=== PATIENT | male | born 1940 | race Caucasian/White ===

== ENCOUNTER 2017-10-02 19:51 | Emergency (ER) | payer MEDICARE, OTHER ==
[~2017-10-02] VITALS: Ht 177.8 cm; Wt 115.0 kg
[2017-10-02 20:29] VITALS: BP 158/74; PULSE 78; RESP 18; TEMP 98.5; O2SAT 97
[2017-10-02 21:28] LABS: AUTOMATED NEUTROPHIL # 4.1 TH/MM3 (1.8-7.7); BASOPHIL # 0.1 TH/MM3 (0-0.2); BASOPHIL % 0.7 % (0.0-2.0); EOSINOPHIL # 0.2 TH/MM3 (0-0.4); HEMATOCRIT 43.6 % (39.0-51.0); HEMOGLOBIN 15.3 GM/DL (13.0-17.0); LYMPH % 30.3 % (9.0-44.0); LYMPHOCYTE # 2.2 TH/MM3 (1.0-4.8); MEAN CELL VOLUME 90.4 FL (80.0-100.0); MEAN CORPUSCULAR HEMOGLOBIN 31.7 PG (27.0-34.0); MEAN PLATELET VOLUME 7.9 FL (7.0-11.0); MONO % 8.1 % (0.0-8.0); MONOCYTE # 0.6 TH/MM3 (0-0.9); NEUT % 57.9 % (16.0-70.0); PLATELET COUNT 261 TH/MM3 (150-450); RED BLOOD COUNT 4.82 MIL/MM3 (4.50-5.90); RED CELL DISTRIBUTION WIDTH 12.8 % (11.6-17.2); WHITE BLOOD COUNT 7.1 TH/MM3 (4.0-11.0)
[2017-10-02 21:53] LABS: BICARBONATE 26.5 MEQ/L (21.0-32.0); BLOOD UREA NITROGEN 18 MG/DL (7-18); CALCIUM 8.8 MG/DL (8.5-10.1); CHLORIDE 107 MEQ/L (98-107); CREATININE 0.88 MG/DL (0.60-1.30); GLOMERULAR FILTRATION RATE 84 ML/MIN (>89); GLUCOSE,RANDOM 112 MG/DL (74-106); SODIUM (NA) 141 MEQ/L (136-145)
--- NOTE | 2017-10-02 22:19 | RADRPT ---
EXAM DATE/TIME: 10/02/2017 21:36 [place] COMPARISON: No previous studies available for comparison. INDICATIONS : Chest pain. MEDICAL HISTORY : None. SURGICAL HISTORY : None. ENCOUNTER: Initial ACUITY: 1 day PAIN SCORE: 8/10 LOCATION: Bilateral chest FINDINGS: PA and lateral views of the chest demonstrate the lungs to be symmetrically aerated without evidence of mass, infiltrate or effusion. The cardiomediastinal contours are unremarkable. Spurs are seen in the thoracic spine. CONCLUSION: No acute disease. Juan Daniel Gomez MD on October 02, 2017 at 22:16 Board Certified Radiologist. This report was verified electronically.
[2017-10-02 22:21] LABS: TROPONIN I LESS THAN 0.02 NG/ML (0.02-0.05)
[2017-10-02] MEDS ORDERED: FINA5TAB2 (23:57)
[2017-10-02] MEDS ORDERED: CARV6.252 PO (23:57)
[2017-10-02] MEDS ORDERED: TAMS0.4C4 PO (23:57)
[2017-10-02] MEDS ORDERED: VYTO10TA9 PO (23:57)
[2017-10-02] MEDS ORDERED: MICA80TA2 PO (23:57)
[2017-10-02] MEDS ORDERED: ASPI-516 CHEW (23:57)
[2017-10-02] MEDS ORDERED: ASPI-183 PO (23:57)
[2017-10-02] MEDS ORDERED: CLOB0.055 TOPICAL (23:57)
[2017-10-03 00:16] VITALS: BP 171/81; PULSE 68; RESP 18; O2SAT 95
[2017-10-03 00:41] VITALS: RESP 18; O2SAT 97
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
--- NOTE | 2017-10-04 11:25 | EKG ---
Date Performed: 10/02/2017 Time Performed: 20:46:06 PTAGE: 77 years EKG: Sinus rhythm NORMAL ECG PREVIOUS TRACING : 08/30/2003 08.14 Since the previous tracing, no significant change noted DOCTOR: Mitchell Toure Interpretating Date/Time 10/04/2017 11:24:10
--- NOTE | 2017-10-04 11:26 | EKG ---
Date Performed: 10/03/2017 Time Performed: 00:37:23 PTAGE: 77 years EKG: Sinus rhythm MODERATE VOLTAGE CRITERIA FOR LVH, CONSIDER NORMAL VARIANT BORDERLINE ECG PREVIOUS TRACING : 10/02/2017 20.46 Since the previous tracing, no significant change noted DOCTOR: Mitchell Toure Interpretating Date/Time 10/04/2017 11:24:17
== END 2017-10-03 02:50 | disposition home or self-care (01) ==
LOC: NEPE 19:51
DX: R60.9 Edema, unspecified (principal); R07.9 Chest pain, unspecified; R06.02 Shortness of breath; E78.00 Pure hypercholesterolemia, unspecified; I10 Essential (primary) hypertension
CPT/HCPCS: 71046; 80048; 82550; 82552; 83880; 84484; 85025; 93005; 99285

== ENCOUNTER 2017-10-25 05:37 | Day surgery (SDC) | payer MEDICARE, OTHER ==
[~2017-10-25] VITALS: Ht 177.8 cm; Wt 115.9 kg
[2017-10-25] VITALS (11 sets, daily range): BP systolic 137–186; BP diastolic 64–83; PULSE 48–78; RESP 17–20; TEMP 97.8–98; O2SAT 95–97
[~2017-10-25 05:37] MED LIST: ASPI-183 PO; ASPI-516 CHEW; CARV6.252 PO; CLOB0.055 TOPICAL; FINA5TAB2; MICA80TA2 PO; TAMS0.4C4 PO; VYTO10TA9 PO
[2017-10-25] MEDS ORDERED: IOHEXOL 350 MG/ML 100 ML BTL (for Cath Lab) OTHER ONE (05:38)
[2017-10-25] MEDS ORDERED: ASPIRIN 325 MG TAB PO SCH (06:30)
[2017-10-25] MEDS ORDERED: HEPARIN-NS/PF FLUSH BAG 2,000 ML IV FLUSH ONE (06:57)
[2017-10-25 06:58] LABS: AUTOMATED NEUTROPHIL # 3.7 TH/MM3 (1.8-7.7); BASOPHIL # 0.1 TH/MM3 (0-0.2); BASOPHIL % 0.9 % (0.0-2.0); EOSINOPHIL # 0.2 TH/MM3 (0-0.4); EOSINOPHIL % 2.7 % (0.0-4.0); HEMOGLOBIN 13.5 GM/DL (13.0-17.0); LYMPH % 27.3 % (9.0-44.0); LYMPHOCYTE # 1.7 TH/MM3 (1.0-4.8); MEAN CELL VOLUME 90.3 FL (80.0-100.0); MEAN CORPUSCULAR HEMOGLOBIN 31.1 PG (27.0-34.0); MEAN CORPUSCULAR HGB CONC 34.5 % (32.0-36.0); MEAN PLATELET VOLUME 7.7 FL (7.0-11.0); MONO % 8.5 % (0.0-8.0); MONOCYTE # 0.5 TH/MM3 (0-0.9); NEUT % 60.6 % (16.0-70.0); PLATELET COUNT 247 TH/MM3 (150-450); RED BLOOD COUNT 4.33 MIL/MM3 (4.50-5.90); RED CELL DISTRIBUTION WIDTH 13.2 % (11.6-17.2); WHITE BLOOD COUNT 6.1 TH/MM3 (4.0-11.0)
[2017-10-25] MEDS ORDERED: NS 1000P @30 MLS/HR (KVO) IV SCH (07:00)
[2017-10-25 07:09] LABS: INTERNATIONAL NORMALIZED RATIO 1.1 RATIO; PROTHROMBIN TIME - PATIENT 11.4 SEC (9.8-11.6)
[2017-10-25 07:12] LABS: BICARBONATE 27.3 MEQ/L (21.0-32.0); CALCIUM 8.6 MG/DL (8.5-10.1); CREATININE 0.93 MG/DL (0.60-1.30)
[2017-10-25] MEDS ORDERED: MIDAZOLAM HCL 2 MG/2 ML VIAL ONE (07:25)
[2017-10-25] MEDS ORDERED: VERAPAMIL HCL 5 MG/2 ML VIAL ONE (07:26)
[2017-10-25] MEDS ORDERED: HEPARIN SODIUM - IV 10,000 UNITS/10 ML VIAL ONE (07:26)
[2017-10-25] MEDS ORDERED: LIDOCAINE HCL 1% PF 30 ML VIAL ONE (07:52)
[2017-10-25] MEDS ORDERED: BIVALIRUDIN 250 MG VIAL ONE ×2 (08:37→08:59)
[2017-10-25] MEDS ORDERED: TICAGRELOR 90 MG TAB PO ONE (09:20)
[2017-10-25] MEDS ORDERED: BIVALIRUDIN INJ 250 MG in SODIUM CHLORIDE 0.9% INJ 50 ML IV SCH (09:42)
[2017-10-25] MEDS ORDERED: SODIUM CHLOR 0.9% 1000 ML INJ 1,000 ML IV SCH (09:42)
[2017-10-25] MEDS ORDERED: ONDANSETRON HCL 4 MG/2 ML VIAL IV PUSH PRN (09:45)
[2017-10-25] MEDS ORDERED: ACETAMINOPHEN 325 MG TAB PO PRN (09:45)
[2017-10-25] MEDS ORDERED: SODIUM CHLORIDE 0.9% FLUSH 10 ML FLUSH IV FLUSH PRN (09:45)
[2017-10-25] MEDS ORDERED: oxyCODONE/ACETAMINOPHEN 5 MG/325 MG TAB PO PRN (09:45)
--- NOTE | 2017-10-25 09:46 | CATHPROC ---
Cerevo HIS Report Study Information Study Number Admission Scheduled Start Study Start [id number] Oct 25 2017 5:37AM 10/25/2017 Oct 25 2017 7:16AM [facility] Cardiac Catheterization Admit Source Facility Department Other [facility] - Director Of Compensation Physician and Clinical Staff Initial MD Kan, Ron Right Of Way Appraiserrich Mahmood RN, Demarco Recorder Nena Reyna ,RT(R) Scrub Kareem Rojo RCIS(BS) Procedures Performed Procedure Location (Site) Vessel Name Angiogram LV LV Ventricle Coronary Angiograms LCA Left Coronary Coronary Angiograms RCA Right Coronary Drug Eluting Inflatio RCA Mid Right Coronary L Heart Cath PTCA RCA Mid Right Coronary Wire insertion Fem Art (right) Femoral Art Wire insertion Radial (right) Radial Art. Equipment Time Lineman Apprentice Description Size Mfg Part Number Used/Scraped [id number] 08:59 [employer] WIRE, ASAHI GRANDSLAM 180CM 180CM Used *[id number] WIRE, BALANCE MIDDLEWEIGHT [id number] 09:02 [employer] 190CM Used 190CM *[id number] TRANSDUCER, TRUWAVE [id number] 07:54 JAMA MARVIN * Used W/STOCKCOCK *[id number] 08:58 [employer] BALLOON, 3.5 20MM EMERGE MR 3.5 20MM Used *[id number] BALLOON, 4.5 15[place] [id number] 09:17 [employer] 4.5 15MM Used QUANTUM APEX MR *[id number] 534-676T *[id number] [phone] *[id number] 534-622T *3755926 [phone] *8891496 [phone] *[id number] PIGTAIL ANG. 145 INFINITI 534-652S CATHETER *[id number] *[id number] 447267 09:25 DAIG/[employer]. TOD[employer] ANGIOSEAL, FR6 VIP FR 6 Used *[id number] 056246 07:54 MALLINCKRODT SYRINGE, ANGIOMAT 150ML 150ML *[id number]/022657 Used 2SUB [id number] 07:54 MEDLINE IND[employer] PACK, CCL CUSTOM * Used *[id number] 07:54 MED[employer] IND[employer] SUPPORT, ARTERIAL ADULT 07347 *4645995 Used [id number] 07:54 MEDLINE PACER PEN, SKIN DUAL W/ RULER * Used *[id number] [id number] 08:56 MED[employer] STENT, 4.0 26MM SHY 4.0 26MM Used * [id number] 09:07 [employer] MEDICAL 30 GISELL INDEFLATOR Used *[id number] BAND, RADIAL COMPRESSION TR [id number] 09:28 [employer] MEDICAL 29CM Used LARGE 29 *[id number] [id number] 08:23 RPO SHEATH, FR6.5 PRELUDE 11CM FR 6.5 038ACT Used *[id number] [id number] 07:54 RPO WIRE, EXCHANGE 260CM 3MMJ 260CM Used *[id number] [id number] 07:54 NAMIC MANIFOLD, 4 PORT * Used *0211061 [id number] 08:25 NAMIC TUBING, HIGH PRESSURE 48" 48" Used *3477367 [id number] 08:25 NAMIC TUBING, HIGH PRESSURE 48" 48" Used *9187653 07:54 [employer] OMNIPAQUE, 350 MG, 100ML 100ML [id number] Used [id number] 07:54 [employer] BLANKET,WARM AIR CCL * Used *2545085 07:54 [employer] JELCO NEEDLE 4056 *2927041 Used CATHETER, FR5 OPTITORQUE [id number] 07:57 [employer] FR 5 Used RADIAL TIG 4.0 *[id number] SHEATH, FR6 TRANSRADIAL RM*[id number] 07:54 [employer] FR 6 Used SLENDER 10CM *[id number] WIRE, ANGLED GLIDE .035 [id number] 08:13 [employer] MEDICAL/CHASE 260CM Used 260CM *[id number] Equipment Model, Serial, Lot Number and Expiration Data Description Model Number Serial Number Lot Number Expiration Date ANGIOSEAL, FR6 [facility] [id number] 05-07-2018 BALLOON, 3.5 20MM EMERGE MR [id number] 05-07-2018 STENT, 4.0 26MM SHY [id number] 01-21-2019 History: Current Medications Medication Dosage/Unit Route Frequency Last Date/Time Taken ASA CARVEDILOL History: Allergies Allergy Reaction promethazine Anaphylaxis History: Risk Factors Family History of Hypertension Dyslipidemia Previous SD Previous Heart Failure Premature CAD Yes Yes No No No Prior Valve Prior PCI Prior CABG Surgery No No No Cerebrovascular Peripheral Artery Chronic Lung On Dialysis Diabetes Disease Disease Disease No No No No No History: Stress Tests Stress or Imaging Studies Performed No Labs Hgb (g/dl) Hct (%) WBC (l/cumm) Platelets (thousands) 11.60-17.00 35.00-51.00 4.00-11.00 150.00-450.00 13.5 39 6.1 247 Glucose (mg/dl) BUN (mg/dl) Creatinine (mg/dl) BUN:Creatinine (1:x) 74.00-106.00 7.00-18.00 0.50-1.30 10.00-20.00 98 15 0.9 16.7 Na (meq/l) K (meq/l) 136.00-145.00 3.50-5.10 143 3.8 INR (PTT:PT) 0.90-1.10 1.1 CPK-MB (ng/ML) 0.50-3.60 Not Drawn Medication Medication Total Dose (Bolus/Oral) Medication Total Dosage/Unit 1% XYLOCAINE 25 mL ANGIOMAX BOLUS 17.2 mL BRILLINTA 180 mg FENTANYL 50 mcg NTG (IC) 200 mcg RADIAL COCKTAIL 5 mL (Bolus) VERSED 2 mg Medications (Bolus/Oral) Medication Time Given Dosage/Unit Administered By Reason VERSED 10/25/2017 8:05:12 AM 1 mg Demarco Mahmood RN 1 mg VERSED given in lab by Demarco Mahmood RN in Left Antecubital via Peripheral IV. Ordered by Ron Kan. 1% XYLOCAINE 10/25/2017 8:05:29 AM 5 mL Ron Kan 5 mL 1% XYLOCAINE given in lab by Ron Kan in Right Radial via Subcutaneous. Ordered by Ron Kan. Ntg 200mcg Verapamil 2.5mg Heparin RADIAL COCKTAIL 10/25/2017 8:08:37 AM 5 mL (Bolus) Ron Kan 2500U 5 mL (Bolus) RADIAL COCKTAIL given in lab by oRn Kan in Right Radial via Radial. Using [Solutio n Name]. Ordered by Ron Kan. Reason: Ntg 200mcg Verapamil 2.5mg Heparin 2500U. VERSED 10/25/2017 8:09:14 AM 1 mg Demarco Mahmood RN 1 mg VERSED given in lab by Demarco Mahmood RN in Left Antecubital via Peripheral IV. Ordered by Ron Kan. FENTANYL 10/25/2017 8:10:29 AM 50 mcg Demarco Mahmood RN 50 mcg FENTANYL given in lab by Demarco Mahmood RN in Left Antecubital via Peripheral IV. Ordered by Ron Houser. 1% XYLOCAINE 10/25/2017 8:21:07 AM 20 mL Ron Kan 20 mL 1% XYLOCAINE given in lab by Ron Kan in Right Groin via Subcutaneous. ANGIOMAX BOLUS 10/25/2017 8:39:20 AM 17.2 mL Demarco Mahmood RN 17.2 mL ANGIOMAX BOLUS given in lab by Demarco Mahmood RN in Left Antecubital via Peripheral IV. Ordered by Ron Kan. NTG (IC) 10/25/2017 8:54:30 AM 200 mcg Ron Kan 200 mcg NTG (IC) given in lab by Ron Kan via Intra-coronary. Ordered by Ron Kan. BRILLINTA 10/25/2017 9:29:00 AM 180 mg Demarco Mahmood RN 180 mg BRILLINTA given in lab by Demarco Mahmood RN in Per mouth via Oral. Ordered by Ron Kan. Medication (Drip) Medication Time Given Dosage/Unit Concentration/Unit Diluent (ml) Solution ANGIOMAX DRIP 10/25/2017 8:43:21 AM 1.748 mg/kg/hr 250 mg 50 NaCl .9 1.748 mg/kg/hr ANGIOMAX DRIP given in lab by Demarco Mahmood RN in Left Antecubital via Peripheral IV. P ump/Drip Flow = 40.2 ml/hr using NaCl .9 with a concentration of 250 mg in 50 ml. Ordered by Ron Kan. IV Solutions 10/25/2017 7:16:06 AM 50 mL (IV) NaCl .9 Patient arrived on IV Solutions in Left Antecubital via Peripheral IV. Pump/Drip Flow using NaCl .9. Initial Case Assessment Cardiovascular HR NIBP Chest Pain 53 132/71 0 Edema Present Skin color Skin Mild Normal Warm Dry Circulatory - Right Pulses Dorsalis Pedis Femoral Radial 1 2 2 Scale (0,1,2,3,4,d) Circulatory - Left Pulses Dorsalis Pedis Femoral Radial 1 2 Scale (0,1,2,3,4,d) Neurological State Oriented to time-place- Alert Moves all extremities person Respiration - General Respiration Rate SpO2 (%) (B/min) 15 97 Final Case Assessment Cardiovascular HR NIBP Chest Pain 53 132/71 0 Edema Present Skin color Skin Mild Normal Warm Dry Circulatory - Right Pulses Dorsalis Pedis Femoral Radial 1 2 2 Scale (0,1,2,3,4,d) Circulatory - Left Pulses Dorsalis Pedis Femoral Radial 1 2 Scale (0,1,2,3,4,d) Neurological State Oriented to time-place- Alert Moves all extremities person Respiration - General Respiration Rate SpO2 (%) (B/min) 15 97 Chronological Log Time Study Chronological Log 7:15:55 Patient arrived via Bed. 7:15:55 Patient Name, D.O.B, / Armband Verified By R.N. 7:15:56 Consent signed by the physician and the patient and verified by the Director Of Compensation staff. 7:15:56 Pre-op and post- op instructions given; patient acknowledges understanding of instructions. 7:15:57 Verbal Stimulation=2 Physical Stimulation=2 Airway=2 Respiration=2 TOTAL=8. (0=absent, 1=li mited, 2=present) 7:15:57 Presedation assessment performed by Director Of Compensation RN. 7:15:58 Allens test performed on the right radial and ulnar artery. positive 7:15:59 Immediate Presedation assesment performed by physician. 7:16:00 Patient has been NPO for More than 6Hrs. 7:16:02 Skin Breakdown- none per patient 7:16:02 Patient Warmer Placed on the Table. 7:16:03 Arelis Prominences Protected 7:16:05 A # 20 IV was noted in the Antecubital (left). Grade = 0 7:16:06 Patient arrived on IV Solutions in Left Antecubital via Peripheral IV. Pump/Drip Flow using NaCl .9. 7:16:06 History and physical on the chart or being dictated. Vitals capture started with the following parameters, Patient=Adult, Interval=5 min, Initial Pr kkesjl=604 mmHg, 7:19:00 Deflation Rate=5 mmHg, Cuff placed on Right Arm 7:19:39 HR=51 bpm, CHBK=087/82 mmhg, SpO2=96.0 %, Pain=0, Kehinde=8, Resendez=2 7:24:36 HR=55 bpm, WHKG=453/75 mmhg, Pain=0, Kehinde=8, Resendez=2 Assessment: Initial Case, HR=53 BPM, FTQL=784/71 mmhg, Chest Pain=0, Edema=Mild, Color=Normal, S kin = Warm, Dry Right Pulses: Leonides Ped=1, Femoral=2, Radial=2 7:27:34 Left Pulses: Leonides Ped=1, Femoral=2 Neurological: State=Alert, Ox3, HERZOG Respiration: Resp=15 B/min, SpO2=97 % 7:28:35 Reference ECG taken 7:29:40 HR=51 bpm, EVOP=494/72 mmhg, Pain=0, Kehinde=8, Resendez=2 7:34:39 HR=50 bpm, WEAU=623/70 mmhg, Pain=0, Kehinde=8, Resendez=2 7:40:01 Siemens hemodynamics screen not functioning properly, moving patient to lab 5 to perform pro cedure. 7:41:06 Patient moved to stretcher 7:42:18 Patient arrived via Bed. 7:42:19 Patient Name, D.O.B, / Armband Verified By R.N. 7:42:21 Consent signed by the physician and the patient and verified by the Director Of Compensation staff. Vitals capture started with the following parameters, Patient=Adult, Interval=5 min, Initial Pre ifblp=230 mmHg, 7:48:30 Deflation Rate=5 mmHg, Cuff placed on Right Ankle 7:49:15 HR=54 bpm, JEAK=398/73 mmhg, SpO2=97.0 %, Resp=20 B/min, Pain=0, Kehinde=8, Resendez=2 7:51:29 Right Radial and right groin prepped with 2% chlorhexidine, and draped after a 3 min. waitin g time. 7:52:30 MD paged 7:54:26 Reference ECG taken 7:54:44 HR=49 bpm, PHOB=142/75 mmhg, SpO2=96.0 %, Resp=13 B/min, Pain=0, Kehinde=8, Resendez=2 7:55:15 Pressure channel 1 zero failed. 7:55:26 Pressure channel 1 zeroed. 7:56:34 MD arrived. 7:59:13 HR=52 bpm, QVXB=309/72 mmhg, SpO2=95.0 %, Resp=10 B/min, Pain=0, Kehinde=8, Resendez=2 8:04:14 HR=49 bpm, HXOJ=622/71 mmhg, SpO2=96.0 %, Resp=10 B/min Time Out. Correct patient, correct procedure, correct physician, power injector loaded with cont rast with surgical team 8:04:14 present. Time Out Concurred by MD and individual staff in procedure. 8:04:45 Case Start 8:05:12 1 mg VERSED given in lab by Demarco Mahmood RN in Left Antecubital via Peripheral IV. Ordered Ron Lin. 8:05:29 5 mL 1% XYLOCAINE given in lab by Ron Kan in Right Radial via Subcutaneous. Ordered by Ron Kan. 8:07:04 Access site was Right Radial Artery. A SHEATH, FR6 TRANSRADIAL SLENDER 10CM FR 6 was advanced into the Radial (right) using the Fabrice balbuena 8:07:24 technique. 5 mL (Bolus) RADIAL COCKTAIL given in lab by Ron Kan in Right Radial via Radial. Using [So lution Name]. 8:08:37 Ordered by Ron Kan. Reason: Ntg 200mcg Verapamil 2.5mg Heparin 2500U. 8:09:14 1 mg VERSED given in lab by Demarco Mahmood RN in Left Antecubital via Peripheral IV. Ordered Ron Lin. 8:09:15 HR=53 bpm, SKVL=508/69 mmhg, SpO2=96.0 %, Resp=12 B/min, Pain=0, Kehinde=8, Resendez=2 A CATHETER, FR5 OPTITORQUE RADIAL TIG 4.0 FR 5 was advanced over a wire. OMNIPAQUE, 350 MG, 100M L 100ML 8:10:00 was used for injections. 8:10:29 50 mcg FENTANYL given in lab by Demarco Mahmood RN in Left Antecubital via Peripheral IV. Order ed by Ron Kan. 8:14:12 HR=67 bpm, WKSE=723/67 mmhg, SpO2=90.0 %, Resp=15 B/min, Pain=0, Kehinde=8, Resendez=2 8:16:40 A WIRE, ANGLED GLIDE .035 260CM 260CM was inserted via Radial (right). 8:18:14 Catheter and wire were removed 8:19:13 HR=57 bpm, BFSN=357/65 mmhg, SpO2=95.0 %, Resp=13 B/min 8:19:30 Radial access aborted, unable to cross aorta. 8:21:07 20 mL 1% XYLOCAINE given in lab by Ron Kan in Right Groin via Subcutaneous. 8:22:21 Access site was Right Femoral Artery. 8:22:29 A SHEATH, FR6.5 PRELUDE 11CM FR 6.5 was advanced into the Fem Art (right) using the Percutan eous technique. A PIGTAIL ANG. 145 INFINITI CATHETER FR 6 was advanced over a wire. OMNIPAQUE, 350 MG, 100ML 100 ML was 8:24:03 used for injections. 8:24:12 HR=69 bpm, JJRI=459/66 mmhg, SpO2=95.0 %, Resp=15 B/min Recorded Pressure: LV, HR=56, Condition=Condition 1 8:24:56 (Left Ventricle) LV 120/4/10 8:26:18 The LV was injected at 10 cc/sec for a total of 40. OMNIPAQUE, 350 MG, 100ML 100ML used. Recorded Pressure: LV, Ao, HR=56, Condition=Condition 1 8:27:41 (Left Ventricle) LV 121/3/21, (Aorta) Ao 121/52/79 After removing the current catheter a JL 5.0 INFINITI CATHETER FR 6 was advanced over a WIRE, EX CHANGE 260CM 8:28:09 3MMJ 260CM. 8:29:13 HR=54 bpm, XTGN=210/68 mmhg, SpO2=96.0 %, Resp=14 B/min, Pain=0, Kehinde=8, Resendez=2 8:29:52 The LCA was injected and visualized at various angles. OMNIPAQUE, 350 MG, 100ML 100ML used. After removing the current catheter a 3DRC INFINITI CATHETER FR 6 was advanced over a WIRE, EXCH TAHIR 260CM 8:33:39 3MMJ 260CM. 8:34:12 HR=59 bpm, YMPN=744/76 mmhg, SpO2=96.0 %, Resp=17 B/min, Pain=0, Kehinde=8, Resendez=2 8:35:42 The RCA was injected and visualized at various angles. OMNIPAQUE, 350 MG, 100ML 100ML used. 8:39:15 HR=54 bpm, QXQJ=341/71 mmhg, SpO2=96.0 %, Resp=13 B/min, Pain=0, Kehinde=8, Resendez=2 17.2 mL ANGIOMAX BOLUS given in lab by Demarco Mahmood RN in Left Antecubital via Peripheral IV. Or dered by Lucius, 8:39:20 Ron. After removing the current catheter a JR 4.0 GUIDE CATHETER FR 6 was advanced over a WIRE, EXCHA NGE 260CM 8:39:40 3MMJ 260CM. 8:41:10 Pressure channel 1 zeroed. 1.748 mg/kg/hr ANGIOMAX DRIP given in lab by Demarco Mahmood RN in Left Antecubital via Peripheral IV. Pump/Drip Flow = 8:43:21 40.2 ml/hr using NaCl .9 with a concentration of 250 mg in 50 ml. Ordered by Ron Kan. 8:44:18 HR=54 bpm, IQRB=762/70 mmhg, SpO2=96.0 %, Resp=12 B/min, Pain=0, Kehinde=8, Resendez=2 8:45:51 A WIRE, ATW MARKER 195CM 195CM was inserted via Fem Art (right). 8:46:35 ATW Wire removed After removing the current catheter a AL 1 GUIDE CATHETER FR 6 was advanced over a WIRE, EXCHANG E 260CM 8:48:13 3MMJ 260CM. 8:49:17 HR=51 bpm, WFSV=463/69 mmhg, SpO2=95.0 %, Resp=17 B/min, Pain=0, Kehinde=8, Resendez=2 8:51:06 A WIRE, ATW MARKER 195CM 195CM was inserted via Fem Art (right). 8:54:16 HR=50 bpm, AASG=836/70 mmhg, SpO2=95.0 %, Resp=12 B/min, Pain=0, Kehinde=8, Resendez=2 8:54:30 200 mcg NTG (IC) given in lab by Ron Kan via Intra-coronary. Ordered by Ron Kan. 8:59:19 HR=53 bpm, BJFF=815/69 mmhg, SpO2=95.0 %, Resp=10 B/min, Pain=0, Kehinde=8, Resendez=2 8:59:43 A WIRE, ASAHI GRANDSLAM 180CM 180CM was inserted via Fem Art (right). 9:01:12 [place] Wire removed 9:02:17 A WIRE, BALANCE MIDDLEWEIGHT 190CM 190CM was inserted via Fem Art (right). 9:04:21 HR=49 bpm, AKBV=771/73 mmhg, SpO2=96.0 %, Resp=14 B/min, Pain=0, Kehinde=8, Resendez=2 A BALLOON, 3.5 20MM EMERGE MR 3.5 20MM was inserted over WIRE, BALANCE MIDDLEWEIGHT 190CM 190CM via 9:05:36 the Fem Art (right). A BALLOON, 3.5 20MM EMERGE MR 3.5 20MM over a WIRE, BALANCE MIDDLEWEIGHT 190CM 190CM in the RCA Mid 9:06:28 was inflated using a 30 GISELL INDEFLATOR at 12 gisell for 30 sec. 9:07:27 Balloon Removed. A STENT, 4.0 26MM SHY 4.0 26MM was advanced through a AL 1 GUIDE CATHETER FR 6 over a WIRE, BAL ANCE 9:08:51 MIDDLEWEIGHT 190CM 190CM. 9:09:17 HR=54 bpm, VHSK=144/87 mmhg, SpO2=98.0 %, Resp=9 B/min, Pain=0, Kehinde=8, Resendez=2 A STENT, 4.0 26MM SHY 4.0 26MM was deployed using a 30 GISELL INDEFLATOR at 8 atmospheres for 40 s econds in 9:10:56 the RCA Mid. 9:12:20 Delivery device removed 9:15:02 HR=48 bpm, MQVC=389/77 mmhg, SpO2=98.0 %, Resp=8 B/min, Pain=0, Kehinde=8, Resendez=2 A BALLOON, 4.5 15MM NC QUANTUM APEX MR 4.5 15MM was inserted over WIRE, BALANCE MIDDLEWEIGHT 190 CM 9:15:36 190CM via the Fem Art (right). 9:18:03 Balloon Removed. 9:18:11 Wire removed 9:18:17 BMW Wire removed After removing the current catheter a 3DRC INFINITI CATHETER FR 6 was advanced over a WIRE, EXCH TAHIR 260CM 9:18:35 3MMJ 260CM. 9:19:24 HR=48 bpm, FNQX=517/75 mmhg, SpO2=97.0 %, Resp=18 B/min, Pain=0, Kehinde=8, Resendez=2 9:20:43 Catheter was removed 9:22:00 An injection in the Fem Art (right) was made through the SHEATH, FR6.5 PRELUDE 11CM FR 6.5. 9:24:23 HR=54 bpm, QOGI=813/81 mmhg, SpO2=97.0 %, Resp=15 B/min, Pain=0, Kehinde=8, Resendez=2 9:24:26 ANGIOSEAL, FR6 VIP FR 6 placement in the Fem Art (right) 9:26:23 Case End Assessment: Final Case, HR=53 BPM, YOOG=040/71 mmhg, Chest Pain=0, Edema=Mild, Color=Normal, Ski n = Warm, Dry Right Pulses: Leonides Ped=1, Femoral=2, Radial=2 9:27:33 Left Pulses: Leonides Ped=1, Femoral=2 Neurological: State=Alert, Ox3, HERZOG Respiration: Resp=15 B/min, SpO2=97 % 9:27:41 Catheter(s) removed without difficulty Radial Compression Device Used. 12 mLs of air placed in BAND, RADIAL COMPRESSION TR LARGE 29 29C M. Affected 9:27:44 hand ~O2 SATURATION~ % O2 saturation. 9:27:56 Sterile dressing applied to site 9:27:57 No case complications noted. 9:27:59 Cine recording checked. 9:28:00 Bedside Report will be given. 9:28:03 Implantable Device card placed in patient's chart. 9:28:07 A Left Heart Cath was performed. 9:29:00 180 mg BRILLINTA given in lab by Demarco Mahmood RN in Per mouth via Oral. Ordered by Johanna Kan. 9:29:26 HR=48 bpm, FMSD=294/75 mmhg, SpO2=97.0 %, Resp=12 B/min, Pain=0, Kehinde=8, Resendez=2 9:34:21 HR=48 bpm, WDTJ=398/75 mmhg, SpO2=97.0 %, Resp=18 B/min, Pain=0, Kehinde=8, Resendez=2 9:38:43 Patient moved to stretcher 9:39:03 Vitals capture stopped. End Study - Contrast Media Used In Study Contrast Total Opened (mL) Total Used (mL) Total Wasted (mL) Omnipaque 170 170 0 End Study - Maximum Contrast Load Max Contrast Load (mL) 638.9 End Study - Radiation Exposure Fluoro Time (minutes) 22.9 End Study - Patient Disposition Complications Transferred To Interventional Outcome No Critical Care Bed successful
--- NOTE | 2017-10-25 10:09 | MA ---
cc: Ron Kan MD,Dick Lepe MD DATE: 10/25/2017 PROCEDURES PERFORMED: Left heart catheterization, left ventriculography, coronary angiography, right radial arterial access, right femoral arterial access with Angio-Seal, complex balloon angioplasty and stenting of the mid right coronary artery. BRIEF HISTORY: Landon Massey is a 77-year-old man who recently has developed unstable angina. Angina symptoms did not improve with the addition of nitrate therapy. He was scheduled for a stress test yesterday. When he arrived for the stress test, he was having chest pain. It was relieved with nitro and he was set up for a catheterization early this morning. DESCRIPTION OF PROCEDURE: The patient was brought to the cardiac catheterization lab in fasting state. Using 1% lidocaine for local anesthesia, A Terumo slender sheath was inserted into the right radial artery. There was a bovine arch and I was unable to access the coronary arteries from the right radial artery approach. I opted to go to the right groin where he had a good pulse. Access was obtained with a single front wall stick and a 6.5-Prydeinig sheath placed. Left ventricular pressure was then recorded using a pigtail catheter, followed by left ventriculography and then a pullback. All catheter exchanges were performed over a wire. Left coronary angiography was completed using a left 5 Xena and r right coronary angiography was completed using a 3DRC catheter. The right coronary artery had complex disease with extreme tortuosity and a severely calcified mid stenosis. I started with a right 4 Xena guiding catheter. I was unable to get a guidewire to go around the curve due to the tortuosity. At that point, I decided to opt for more strenuous equipment. The guide was exchanged to a left 1 Amplatz. Even with that guide, it was somewhat difficult to get a wire to go through the bends but I was able to get an ATW wire across the lesion and measure the length of it. It appeared to be a little over 20 mm, probably 22 mm, so I decided I would use a 26 mm stent. The wire was passed distally. I then tried to insert a stent but could not get around the second curve without the guide backing up. I opted at that time to reinforce. I tried to insert an All Star wire, but it would not go around the bend. I inserted a BMW wire so that I had 2 wires with one as a sha. I then predilated the lesion with a 3.5 mm balloon. With moderate difficulty, I was able to get a 4.0 x 26 mm Resolute stent through the proximal curves and across the lesion and position it precisely and then inflate it to 20 atmospheres. Post-angiography, the stent result looks excellent. There is a little residual eccentric disease, but I was unable to pass a balloon through the segment afterwards, so I opted to accept the result. There was BONIFACIO 3 flow. The patient tolerated the procedure well. Angiography was then obtained of the right femoral artery via the sheath, followed by uncomplicated Angio-Seal placement with good hemostasis. This was performed with meticulous sterile technique with repeat ChloraPrep, fresh sterile gloves and fresh sterile towels. The right radial sheath being removed with a Terumo band placed. The patient is admitted to the hospital overnight and I probably let him go home tomorrow morning. FINDINGS: 1. Hemodynamics: Left ventricular pressure was 121/3 with an end diastolic pressure of 21. The aortic pressure is 121/52 with a mean of 79. There was no gradient during pullback from the left ventricle to the aorta. 2. Left ventriculography: Left ventriculography shows symmetrically taylor left ventricle with an estimated ejection fraction of 65%. 3. Coronary angiography: The left main coronary artery appears normal. It bifurcates into the LAD and circumflex vessels. The LAD proximally appears normal. There is about 25% smooth mid disease and 10% irregularities throughout. Major diagonal branch has 10% irregularities. Circumflex artery has about 10% irregularities and 5% irregularities in the obtuse marginal branch. The right coronary artery is dominant. This vessel is extremely tortuous proximally. In the mid segment of the artery is 80% calcific disease and then distally the right coronary artery appears normal and it is dominant. 4. Results of stenting: Following stenting of the mid right coronary artery, the stent is well opposed. The stent shows a nice step up on both ends. In the mid portion of the stent, there may be 5-10% protruding disease in the stent, but a very large lumen and excellent flow. CONCLUSIONS: 1. Mildly elevated left ventricular end diastolic pressure. 2. Preserved left ventricular systolic function. 3. 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 4. Successful but complex stenting of the mid right coronary artery. PLAN: The patient will be maintained on 81 mg aspirin and Brilinta. We will watch him overnight and probably let him go home in the morning. MD DARWIN Richardson/JOSHUA , 09:41 AM , 10:07 AM
[2017-10-25] MEDS ORDERED: TAMSULOSIN HCL 0.4 MG CAP PO SCH (21:00)
[2017-10-25] MEDS ORDERED: NON-FORMULARY DRUG (Ezetimibe-Simvastatin (Vytorin) 1 TAB) PO SCH (21:00)
[2017-10-25] MEDS ORDERED: ASPIRIN 81 MG CHEW TAB CHEW SCH (21:00)
[2017-10-25] MEDS: CARVEDILOL 6.25 MG TAB PO SCH (22:02)
[2017-10-25] MEDS: SODIUM CHLORIDE 0.9% FLUSH 10 ML FLUSH IV FLUSH SCH (22:09)
[2017-10-26] VITALS (17 sets, daily range): BP systolic 143–174; BP diastolic 82–92; PULSE 62–80; RESP 16–18; TEMP 97.9–98.3; O2SAT 95–99
[2017-10-26 04:30] LABS: BASOPHIL % 0.6 % (0.0-2.0); EOSINOPHIL # 0.2 TH/MM3 (0-0.4); EOSINOPHIL % 2.3 % (0.0-4.0); HEMATOCRIT 39.2 % (39.0-51.0); HEMOGLOBIN 13.7 GM/DL (13.0-17.0); LYMPH % 22.8 % (9.0-44.0); LYMPHOCYTE # 1.7 TH/MM3 (1.0-4.8); MEAN CELL VOLUME 89.4 FL (80.0-100.0); MEAN CORPUSCULAR HEMOGLOBIN 31.3 PG (27.0-34.0); MEAN PLATELET VOLUME 7.8 FL (7.0-11.0); MONO % 8.6 % (0.0-8.0); MONOCYTE # 0.7 TH/MM3 (0-0.9); NEUT % 65.7 % (16.0-70.0); PLATELET COUNT 246 TH/MM3 (150-450); RED BLOOD COUNT 4.39 MIL/MM3 (4.50-5.90); RED CELL DISTRIBUTION WIDTH 13.2 % (11.6-17.2); WHITE BLOOD COUNT 7.6 TH/MM3 (4.0-11.0)
[2017-10-26 04:39] LABS: BICARBONATE 26.8 MEQ/L (21.0-32.0); CALCIUM 8.8 MG/DL (8.5-10.1); CREATININE 0.93 MG/DL (0.60-1.30)
--- NOTE | 2017-10-26 07:54 | PD.CARD.PN ---
Subjective Subjective Remarks no angina Objective Medications Current Medications Medications (Trade) Dose Ordered Sig/[place] Route Start Time Stop Time Status Last Admin (Aspirin) 325 mg [employer] OFFICER PO 10/25/17 06:30 10/28/17 06:29 (NS Flush) 2 ml UNSCH PRN IV FLUSH 10/25/17 09:45 (NS Flush) 2 ml BID IV FLUSH 10/25/17 21:00 10/25/17 22:09 (Tylenol) 325 mg Q4H PRN PO 10/25/17 09:45 (Percocet 5-325 Mg) 1 tab Q4H PRN PO 10/25/17 09:45 (Aspirin Chew) 81 mg DAILY PO 10/26/17 09:00 (Brilinta) 90 mg BID PO 10/26/17 09:00 (Zofran Inj) 4 mg Q4H PRN IV PUSH 10/25/17 09:45 (Coreg) 6.25 mg BID PO 10/25/17 21:00 10/25/17 22:02 (Proscar) 5 mg DAILY PO 10/26/17 09:00 (Zetia) 10 mg HS PO 10/26/17 21:00 (Pravachol) 80 mg HS PO 10/26/17 21:00 (Cozaar) 100 mg DAILY PO 10/26/17 09:00 (Microzide) 12.5 mg DAILY PO 10/26/17 09:00 (Flomax) 0.4 mg HS PO 10/25/17 21:00 Vital Signs / I&O Vital Signs Date Time Temp Pulse Resp B/P (MAP) Pulse Ox O2 Delivery O2 Flow Rate FiO2 10/26/17 06:09 69 10/26/17 05:13 63 10/26/17 04:36 62 10/26/17 03:53 98.3 72 17 155/82 (106) 95 10/26/17 03:05 69 10/26/17 02:12 66 10/26/17 01:54 65 10/26/17 00:27 67 10/25/17 23:56 60 10/25/17 23:36 97.8 64 17 144/64 (90) 97 10/25/17 22:00 70 10/25/17 21:15 76 10/25/17 20:05 78 4/20/18 19:35 98.0 63 18 186/83 (117) 96 10/25/17 19:35 76 10/25/17 18:00 56 10/25/17 17:00 48 10/25/17 16:00 50 10/25/17 15:30 56 20 147/72 (97) 96 10/25/17 09:49 99 Room Air I/O 10/25/17 10/25/17 10/25/17 10/26/17 10/26/17 10/26/17 07:00 15:00 23:00 07:00 15:00 23:00 Intake Total 340 ml 360 ml Output Total 300 ml Balance 40 ml 360 ml Intake Oral 340 ml 360 ml Output Urine Total 300 ml # Voids 4 Physical Exam GENERAL: Well developed, well nourished. No acute distress. HEENT: Jugular venous pressure is normal. CHEST: Lungs clear to auscultation bilaterally. Unlabored respiratory effort. CARDIAC: Regular rate and rhythm. ABDOMEN: Soft, nontender, no hepatosplenomegaly. Bowel sounds present. EXTREMITIES: No clubbing, cyanosis, or edema. Right groin and right wrist OK Laboratory Laboratory Tests Test 10/26/17 03:26 White Blood Count 7.6 TH/MM3 Red Blood Count 4.39 MIL/MM3 Hemoglobin 13.7 GM/DL Hematocrit 39.2 % Mean Corpuscular Volume 89.4 FL Mean Corpuscular Hemoglobin 31.3 PG Mean Corpuscular Hemoglobin Concent 35.0 % Red Cell Distribution Width 13.2 % Platelet Count 246 TH/MM3 Mean Platelet Volume 7.8 FL Neutrophils (%) (Auto) 65.7 % Lymphocytes (%) (Auto) 22.8 % Monocytes (%) (Auto) 8.6 % Eosinophils (%) (Auto) 2.3 % Basophils (%) (Auto) 0.6 % Neutrophils # (Auto) 5.0 TH/MM3 Lymphocytes # (Auto) 1.7 TH/MM3 Monocytes # (Auto) 0.7 TH/MM3 Eosinophils # (Auto) 0.2 TH/MM3 Basophils # (Auto) 0.0 TH/MM3 CBC Comment DIFF FINAL Differential Comment Blood Urea Nitrogen 15 MG/DL Creatinine 0.93 MG/DL Random Glucose 100 MG/DL Calcium Level 8.8 MG/DL Sodium Level 143 MEQ/L Potassium Level 3.7 MEQ/L Chloride Level 108 MEQ/L Carbon Dioxide Level 26.8 MEQ/L Anion Gap 8 MEQ/L Estimat Glomerular Filtration Rate 79 ML/MIN Total Creatine Kinase 169 U/L Assessment and Plan Problem List: (1) Coronary artery disease ICD Codes: I25.10 - Atherosclerotic heart disease of [place] coronary artery without angina pectoris Plan: stable s/p stent (2) Hyperlipidemia ICD Codes: E78.5 - Hyperlipidemia, unspecified Plan: continue his statin (3) Morbid obesity ICD Codes: E66.01 - Morbid (severe) obesity due to excess calories (4) Hypertensive cardiomyopathy ICD Codes: I11.9 - Hypertensive heart disease without heart failure; I43 - Cardiomyopathy in diseases classified elsewhere Plan: continue BP meds (5) Stented coronary artery ICD Codes: Z95.5 - Presence of coronary angioplasty implant and graft Plan: Cont ASA 81mg and Brilinta Assessment and Plan No strenuous activity. Heart heaslthy diet. OV 2 weeks Ron Kan MD Oct 26, 2017 07:54
[2017-10-26] MEDS ORDERED: BRIL90TA PO (07:57)
[2017-10-26] MEDS: SODIUM CHLORIDE 0.9% FLUSH 10 ML FLUSH IV FLUSH SCH (08:40)
[2017-10-26] MEDS: CARVEDILOL 6.25 MG TAB PO SCH (08:40)
[2017-10-26] MEDS ORDERED: HYDROCHLOROTHIAZIDE 12.5 MG CAP PO SCH (09:00)
[2017-10-26] MEDS ORDERED: LOSARTAN 50 MG TAB PO SCH (09:00)
[2017-10-26] MEDS ORDERED: FINASTERIDE 5 MG TAB PO SCH (09:00)
[2017-10-26] MEDS ORDERED: NON-FORMULARY DRUG (Telmisartan-Hydrochlorothiazide (Micardis Hct) 1 TAB) PO SCH (09:00)
[2017-10-26] MEDS ORDERED: TICAGRELOR 90 MG TAB PO SCH (09:00)
[2017-10-26] MEDS ORDERED: ASPIRIN 81 MG CHEW TAB PO SCH (09:00)
--- NOTE | 2017-10-26 09:01 | EKG ---
Date Performed: 10/25/2017 Time Performed: 06:41:38 PTAGE: 77 years EKG: Sinus bradycardia. Normal ECG except for rate NO PREVIOUS TRACING DOCTOR: Solomon Garcia Interpretating Date/Time 10/26/2017 08:59:17
[2017-10-26] MEDS ORDERED: amLODIPine BESYLATE 5 MG TAB PO SCH (12:00)
--- NOTE | 2017-10-26 16:56 | EKG ---
Date Performed: 10/26/2017 Time Performed: 05:41:24 PTAGE: 77 years EKG: Sinus rhythm Possible anterior infarct - age undetermined Inferior T wave changes are nonspecific Since the previ ous tracing, no significant change noted Abnormal ECG PREVIOUS TRACING : 10/25/2017 06.41 DOCTOR: Ron Kan Interpretating Date/Time 10/26/2017 16:52:41
[2017-10-26] MEDS ORDERED: PRAVASTATIN SOD 80 MG TAB PO SCH (21:00)
[2017-10-26] MEDS ORDERED: EZETIMIBE 10 MG TAB PO SCH (21:00)
== END 2017-10-26 16:03 | disposition home or self-care (01) ==
LOC: HDOC 05:37 → HDIC 05:38 → HCIS 15:17 → HDOC 10-26 16:03
PROVIDERS: ATTEND Internal Medicine Cardiovascular Disease
DX: I25.110 Atherosclerotic heart disease of native coronary artery with unstable angina pectoris (principal); I11.9 Hypertensive heart disease without heart failure; I43 Cardiomyopathy in diseases classified elsewhere; E78.5 Hyperlipidemia, unspecified; E66.01 Morbid (severe) obesity due to excess calories; Z68.36 Body mass index [BMI] 36.0-36.9, adult; Z79.82 Long term (current) use of aspirin
CPT/HCPCS: 80048; 82550; 85025; 85610; 85730; 92928; 93005; 93458; 99152; 99153; C1725; C1760; C1769; C1874; C1887; C1893; G0269; J0583; J1644; J2250; J3010; Q9967

== ENCOUNTER 2018-01-01 05:33 | Day surgery (SDC) | payer MEDICARE, OTHER ==
[~2018-01-01] VITALS: Ht 177.8 cm; Wt 110.0 kg
[~2018-01-01 05:33] MED LIST changes: -ASPI-183 PO; +BRIL90TA PO; -TAMS0.4C4 PO
[2018-01-01] MEDS ORDERED: IOHEXOL 350 MG/ML 100 ML BTL (for Cath Lab) OTHER ONE ×2 (05:34)
[2018-01-01] MEDS ORDERED: NS 1000P @30 MLS/HR (KVO) IV SCH (06:00)
[2018-01-01] MEDS ORDERED: ASPIRIN 325 MG TAB PO SCH (06:00)
[2018-01-01 06:23] VITALS: BP 152/73; PULSE 73; RESP 16; TEMP 98; O2SAT 96
[2018-01-01 06:26] LABS: BASOPHIL # 0.1 TH/MM3 (0-0.2); BASOPHIL % 0.8 % (0.0-2.0); EOSINOPHIL # 0.2 TH/MM3 (0-0.4); EOSINOPHIL % 2.7 % (0.0-4.0); HEMOGLOBIN 14.9 GM/DL (13.0-17.0); LYMPH % 27.2 % (9.0-44.0); LYMPHOCYTE # 1.8 TH/MM3 (1.0-4.8); MEAN CORPUSCULAR HEMOGLOBIN 31.9 PG (27.0-34.0); MEAN CORPUSCULAR HGB CONC 35.4 % (32.0-36.0); MEAN PLATELET VOLUME 7.5 FL (7.0-11.0); MONO % 8.5 % (0.0-8.0); MONOCYTE # 0.6 TH/MM3 (0-0.9); NEUT % 60.8 % (16.0-70.0); PLATELET COUNT 214 TH/MM3 (150-450); RED BLOOD COUNT 4.66 MIL/MM3 (4.50-5.90); RED CELL DISTRIBUTION WIDTH 13.6 % (11.6-17.2); WHITE BLOOD COUNT 6.7 TH/MM3 (4.0-11.0)
[2018-01-01] MEDS ORDERED: MICA80TA2 PO (06:35)
[2018-01-01] MEDS ORDERED: CENTCHW3 PO (06:35)
[2018-01-01] MEDS ORDERED: NITR0.4S SL (06:35)
[2018-01-01] MEDS ORDERED: ISOS60TA PO (06:35)
[2018-01-01] MEDS ORDERED: CLAR10CA3 PO (06:35)
[2018-01-01] MEDS ORDERED: COQ-50CA2 PO (06:35)
[2018-01-01 06:38] LABS: INTERNATIONAL NORMALIZED RATIO 1.1 RATIO; PROTHROMBIN TIME - PATIENT 11.4 SEC (9.8-11.6)
[2018-01-01 06:39] LABS: BICARBONATE 25.3 MEQ/L (21.0-32.0); CREATININE 0.86 MG/DL (0.60-1.30)
[2018-01-01] MEDS ORDERED: HEPARIN-NS/PF INJ 1,500 ML ONE (06:39)
[2018-01-01] MEDS ORDERED: MIDAZOLAM HCL 2 MG/2 ML VIAL ONE (07:17)
[2018-01-01] MEDS ORDERED: SODIUM CHLOR 0.9% 1000 ML INJ 1,000 ML IV SCH (08:23)
--- NOTE | 2018-01-01 08:29 | CATHPROC ---
[place] HIS Report Study Information Study Number Admission Scheduled Start Study Start [id number] Jan 01 2018 5:33AM 01/01/2018 Jan 01 2018 7:02AM [place] [facility] Cardiac Catheterization Admit Source Facility Department Other [facility] - Ball Thread Machine Tender Physician and Clinical Staff Initial MD Kan, Ron Telesales Consultant Yadiel Berger,ENRIQUE Recorder Tania Davis RCIS TECH2 Scrub Mary Verma,RT(R) (BS) Procedures Performed Procedure Location (Site) Vessel Name Angiogram LV LV Ventricle Coronary Angiograms LCA Left Coronary Coronary Angiograms RCA Right Coronary Equipment Time Grocery Manager Description Size Mfg Part Number Used/Scraped TRANSDUCER, TRUWAVE [id number] 07:43 JAMA MARVIN * Used W/STOCKCOCK *[id number] *[id number] *[id number] *[id number] PIGTAIL ANG. 145 INFINITI [id number] CATHETER *[id number] 08:09 DAIG/[employer] ANGIOSEAL, FR6 VIP FR 6 Used *[id number] 08:11 DAIG/[employer] ANGIOSEAL, FR6 VIP FR 6 Used *[id number] 07:43 Fabule BLANKET,WARM AIR CCL * Used *[id number] 07:43 Fabule PACK, CCL CUSTOM * Used *[id number] 07:43 SaveUp PACER PEN, SKIN DUAL W/ RULER * Used *[id number] 07:43 Osen SHEATH, FR6.5 PRELUDE 11CM FR 6.5 038ACT Used *[id number] 07:43 Brainrack MEDICAL WIRE, 3MMJ .035 180CM 180CM Used *[id number] 07:43 NAMIC MANIFOLD, 4 PORT * Used *[id number] 07:43 NYCOMED OMNIPAQUE, 350 MG, 150ML 150ML [id number] Used 07:56 NYCOMED OMNIPAQUE, 350 MG, 50ML 50ML [id number] Used Equipment Model, Serial, Lot Number and Expiration Data Description Model Number Serial Number Lot Number Expiration Date ANGIOSEAL, FR6 VIP [id number] 07-07-2018 History: Current Medications Medication Dosage/Unit Route Frequency Last Date/Time Taken ASA BRILLINTA CARVEDILOL Imdur NTG SL MICARDIS History: Allergies Allergy Reaction promethazine Anaphylaxis History: Risk Factors Family History of Hypertension Dyslipidemia Previous IL Previous Heart Failure Premature CAD Yes Yes Yes No No Prior Valve Prior PCI Prior PCIDate Prior CABG Surgery No Yes 10/25/2017 No Cerebrovascular Peripheral Artery Chronic Lung On Dialysis Diabetes Disease Disease Disease No No No No No History: Other Current Smoker Method Quit Packs a Day Years Used Pack Years No Cigarettes 10 Years Ago 1 40 40 Labs Hgb (g/dl) Hct (%) WBC (l/cumm) Platelets (thousands) 11.60-17.00 35.00-51.00 4.00-11.00 150.00-450.00 14.9 42 6.7 214 Glucose (mg/dl) BUN (mg/dl) Creatinine (mg/dl) BUN:Creatinine (1:x) 74.00-106.00 7.00-18.00 0.50-1.30 10.00-20.00 106 16 0.8 20 Na (meq/l) K (meq/l) 136.00-145.00 3.50-5.10 141 3.7 INR (PTT:PT) 0.90-1.10 1.1 CPK-MB (ng/ML) 0.50-3.60 Not Drawn Medication Medication Total Dose (Bolus/Oral) Medication Total Dosage/Unit 1% XYLOCAINE 20 mL FENTANYL 50 mcg VERSED 2 mg Medications (Bolus/Oral) Medication Time Given Dosage/Unit Administered By Reason VERSED 01/01/2018 7:37:21 AM 1 mg Yadiel Berger 1 mg VERSED given in lab by Yadiel Berger RN in Left Antecubital via Peripheral IV. Ordered by Ron Bal. FENTANYL 01/01/2018 7:38:15 AM 50 mcg Yadiel Berger 50 mcg FENTANYL given in lab by Yadiel Berger RN in Left Antecubital via Peripheral IV. Ordered by Ron Agudelo. VERSED 01/01/2018 7:40:29 AM 1 mg Yadiel Berger 1 mg VERSED given in lab by Yadiel Berger RN in Left Antecubital via Peripheral IV. Ordered by Ron Bal. 1% XYLOCAINE 01/01/2018 7:40:37 AM 20 mL Yadiel Berger 20 mL 1% XYLOCAINE given in lab by Yadiel Berger RN in Right Groin via Subcutaneous. Ordered by Ron Aguilar. Medication (Drip) Medication Time Given Dosage/Unit Concentration/Unit Diluent (ml) Solution IV Solutions 01/01/2018 7:10:11 AM 0 mL (IV) 500 NaCl .9 Patient arrived on IV Solutions in Left Antecubital via Peripheral IV. Pump/Drip Flow = 20 ml/hr usin g NaCl .9. Initial Case Assessment Cardiovascular HR Rhythm NIBP Chest Pain 65 sr 129/72 0 Circulatory - Right Pulses Dorsalis Pedis Femoral 2 2 Scale (0,1,2,3,4,d) Circulatory - Left Pulses Dorsalis Pedis Femoral 2 2 Scale (0,1,2,3,4,d) Final Case Assessment Cardiovascular HR Rhythm NIBP Chest Pain 62 sr 119/71 0 Circulatory - Right Pulses Dorsalis Pedis Femoral 2 2 Scale (0,1,2,3,4,d) Circulatory - Left Pulses Dorsalis Pedis Femoral 2 2 Scale (0,1,2,3,4,d) Neurological State Oriented to time-place- Alert Moves all extremities person Respiration - General Respiration Rate SpO2 (%) (B/min) 15 96 Chronological Log Time Study Chronological Log 7:06:40 Patient arrived via Bed. 7:06:46 Patient Name, D.O.B, / Armband Verified By R.N. 7:09:47 Consent signed by the physician and the patient and verified by the Ball Thread Machine Tender staff. 7:09:48 Pre-op and post- op instructions given; patient acknowledges understanding of instructions. 7:09:51 Verbal Stimulation=2 Physical Stimulation=2 Airway=2 Respiration=2 TOTAL=8. (0=absent, 1=li mited, 2=present) 7:10:03 Presedation assessment performed by Ball Thread Machine Tender RN. 7:10:06 Patient has been NPO for More than 6Hrs. 7:10:07 Skin Breakdown-none per pt 7:10:08 Arelis Prominences Protected 7:10:11 A # 20 IV was noted in the Antecubital (left). Grade = 0 7:10:11 Patient arrived on IV Solutions in Left Antecubital via Peripheral IV. Pump/Drip Flow = 20 m l/hr using NaCl .9. 7:10:13 History and physical on the chart or being dictated. Vitals capture started with the following parameters, Patient=Adult, Interval=5 min, Initial Pre lstjr=990 mmHg, 7:11:59 Deflation Rate=5 mmHg, Cuff placed on Left Arm Assessment: Initial Case, HR=65 BPM, Rhythm=sr, JXJT=482/72 mmhg, Chest Pain=0 7:12:27 Right Pulses: Leonides Ped=2, Femoral=2 Left Pulses: Leonides Ped=2, Femoral=2 7:12:36 HR=78 bpm, JICS=910/79 mmhg, SpO2=96.0 %, Resp=8 B/min 7:17:39 HR=63 bpm, ZNMT=079/70 mmhg, SpO2=96.0 %, Resp=0 B/min 7:22:39 HR=66 bpm, IFNE=334/72 mmhg, SpO2=96.0 %, Resp=3 B/min 7:23:05 Bilateral groins prepped with 2% chlorhexidine, and draped after a 3 minute waiting time. 7:25:55 Pressure channel 1 zeroed. 7:27:40 HR=63 bpm, RHWS=237/72 mmhg, SpO2=96.0 %, Resp=14 B/min 7:31:24 MD paged 7:31:35 MD arrived. 7:31:56 Reference ECG taken 7:32:41 HR=63 bpm, OAWY=471/70 mmhg, SpO2=95.0 %, Resp=14 B/min Time Out. Correct patient, correct procedure, correct physician, labs, allergies, and equipment verified with laboratory secretary 7:37:12 team present. Fire risk assesment completed (see hard stop sheet for coding). Time Out Concu rred by MD and individual staff in procedure. 7:37:21 1 mg VERSED given in lab by Yadiel Berger RN in Left Antecubital via Peripheral IV. Ordered by Ron Kan. 7:37:40 HR=62 bpm, SVCP=320/73 mmhg, SpO2=95.0 %, Resp=19 B/min 7:38:15 50 mcg FENTANYL given in lab by Yadiel Berger RN in Left Antecubital via Peripheral IV. Ord ered by Ron Kan. 7:40:29 1 mg VERSED given in lab by Burfield, Yadiel, RN in Left Antecubital via Peripheral IV. Ordered by Ron Kan. 7:40:32 Case Start 7:40:37 20 mL 1% XYLOCAINE given in lab by Yadiel Berger RN in Right Groin via Subcutaneous. Ordere d by Ron Kan. 7:42:41 Access site was Right Femoral Artery. 7:42:43 HR=67 bpm, UGTS=824/67 mmhg, SpO2=91.0 %, Resp=21 B/min 7:42:59 A SHEATH, FR6.5 PRELUDE 11CM FR 6.5 was advanced into the Fem Art (right) using the Percutan eous technique. A 3DRC INFINITI CATHETER FR 6 was advanced over a wire. OMNIPAQUE, 350 MG, 150ML 150ML was used for 7:43:41 injections. Recorded Pressure: Ao, HR=64, Condition=Condition 1 7:47:38 (Aorta) Ao 110/61/82 7:47:44 HR=64 bpm, EBIB=658/67 mmhg, SpO2=91.0 %, Resp=14 B/min 7:47:59 The RCA was injected and visualized at various angles. OMNIPAQUE, 350 MG, 150ML 150ML used. 7:49:10 Catheter was removed A JL 5.0 INFINITI CATHETER FR 6 was advanced over a wire. OMNIPAQUE, 350 MG, 150ML 150ML was use d for 7:49:32 injections. 7:52:43 HR=63 bpm, XVVD=422/62 mmhg, SpO2=94.0 %, Resp=15 B/min 7:53:13 The LCA was injected and visualized at various angles. OMNIPAQUE, 350 MG, 150ML 150ML used. 7:55:10 Catheter was removed A PIGTAIL ANG. 145 INFINITI CATHETER FR 6 was advanced over a wire. OMNIPAQUE, 350 MG, 50ML 50 ML was used 7:55:36 for injections. Recorded Pressure: LV, HR=63, Condition=Condition 1 7:57:02 (Left Ventricle) LV 103/8/13 7:57:24 The LV was injected at 10 cc/sec for a total of 40. OMNIPAQUE, 350 MG, 50ML 50ML used. 7:57:42 HR=66 bpm, HYWS=075/66 mmhg, SpO2=96.0 %, Resp=16 B/min Recorded Pressure: LV, Ao, HR=66, Condition=Condition 1 7:58:51 (Left Ventricle) LV 109/7/13, (Aorta) Ao 112/58/81 7:59:11 Catheter was removed 8:02:41 HR=67 bpm, NTGK=518/63 mmhg, SpO2=95.0 %, Resp=20 B/min 8:07:40 HR=61 bpm, XCWO=265/69 mmhg, SpO2=95.0 %, Resp=15 B/min 8:09:06 An injection in the ~SITE~ was made through the sheath. 8:09:11 ANGIOSEAL, FR6 VIP FR 6 placement in the Fem Art (right) 8:09:53 Case End (Physician broke scrub) 8:12:43 HR=62 bpm, RRXF=356/71 mmhg, SpO2=96.0 %, Resp=15 B/min 8:14:06 Sterile dressing applied to site 8:14:09 No case complications noted. 8:14:12 Cine recording checked. 8:14:14 Bedside Report will be given. Assessment: Final Case, HR=62 BPM, Rhythm=sr, GVUD=661/71 mmhg, Chest Pain=0 Right Pulses: Leonides Ped=2, Femoral=2 8:14:25 Left Pulses: Leonides Ped=2, Femoral=2 Neurological: State=Alert, Ox3, HERZOG Respiration: Resp=15 B/min, SpO2=96 % 8:17:43 Vitals capture stopped. 8:22:08 Patient moved to bed and transferred to docu End Study - Contrast Media Used In Study Contrast Total Opened (mL) Total Used (mL) Total Wasted (mL) Omnipaque 80 80 0 End Study - Maximum Contrast Load Max Contrast Load (mL) 687.5 End Study - Radiation Exposure Fluoro Time (minutes) 2.8 End Study - Sheaths Sheaths Pulled By Sheath Hold Time (min) Ron Kan 5 End Study - Patient Disposition Complications Transferred To Interventional Outcome No Outpatient Bed No attempt made
[2018-01-01] MEDS ORDERED: MISC INFORMATION XX ONE (08:30)
[2018-01-01] MEDS ORDERED: SODIUM CHLORIDE 0.9% FLUSH 10 ML FLUSH IV FLUSH PRN (08:30)
[2018-01-01] MEDS ORDERED: METOCLOPRAMIDE HCL 10 MG/2 ML VIAL IV PUSH PRN (08:30)
--- NOTE | 2018-01-01 08:42 | MA ---
cc: Ron Kan MD DATE: 01/01/2018 PROCEDURES PERFORMED 1. Left heart catheterization. 2. Left ventriculography. 3. Coronary angiography. 4. Right femoral angiography with Angio-Seal placement. BRIEF HISTORY: Landon Massey is a 77-year-old man with known coronary artery disease. I did a previous catheterization on him 10/25/2017. At that time, he had a calcified irregular mid right coronary artery stenosis after a prominent loop bend in the proximal vessel. I stented it with a 4.0 x 26 mm Resolute stent taken up to 20 atmospheres using a left 1 Amplatz guide and a sha wire to get it delivered through the curve. Since that stent procedure; however, he continues to have angina. It is exertional. It is at least class II, probably class III. It has not responded to medications. For this reason, repeat catheterization was performed. DESCRIPTION OF PROCEDURE: The patient was brought to the cardiac catheterization lab in fasting state. I treated him with a total of 2 mg of Versed and 50 mcg of IV fentanyl. Using 1% lidocaine for local anesthesia and using fluoroscopy, a sheath was easily inserted into the right femoral artery. Right coronary angiography was then performed using a number 3DRC catheter in multiple angulated projections. Angiography of the left coronary angiography was performed using a left 5 Xena and multiple angulated projections. An LV gram was then performed with an angled pigtail catheter. I studies his films very carefully. I did not see any revascularization needed or need to do further assessment beyond the angiograms. Angiography was then obtained of the right femoral artery via the sheath, followed by uncomplicated Angio-Seal placement. There were no complications. FINDINGS: 1. Hemodynamics: Left ventricular pressure was 109/7 with an end diastolic pressure of 13. Aortic pressure is 112/58 with a mean of 81. There is no gradient during pullback from the left ventricle to the aorta. 2. Left ventriculography: Left ventriculography shows a symmetrical contraction of left ventricle with an EF of at least 60%. There is no mitral regurgitation seen. 3. Coronary angiography: Left main coronary artery is a large vessel with minimal irregularities. It bifurcates into the LAD and circumflex vessels. The LAD has diffuse 20% irregularities throughout, distally has a spot of about 30% irregularity. There is nothing that I can see that needs revascularization. There is a large major diagonal branch which has 25% mid irregularities. The circumflex artery has about 20% irregularities along with 20% irregularities in the circumflex marginal branch. The right coronary artery is a very large dominant vessel and has a prominent loop to loop curve proximally. Past the [id number] curve in the mid right is the area that has been previously stented. The stent appears widely patent. There is about 10-20% encroachment in a couple of the views from the previous calcification, but no compromise of the stent lumen, no dissection, no thrombus. Distal vessel has irregularities only. IMPRESSION: 1. Normal hemodynamics. 2. Normal left ventricular function. 3. Diffuse mild coronary artery disease; however, right coronary artery stent appears widely patent. I do not see any areas of stenosis to account for his angina. PLAN: Continuation of medical therapy. MD DARWIN Richardson/JOSHUA , 08:22 AM , 08:40 AM
[2018-01-01] MEDS ORDERED: SODIUM CHLORIDE 0.9% FLUSH 10 ML FLUSH IV FLUSH SCH (09:00)
--- NOTE | 2018-01-01 20:24 | EKG ---
Date Performed: 01/01/2018 Time Performed: 06:22:54 PTAGE: 77 years EKG: Sinus rhythm . Inferior T wave changes are nonspecific Borderline ECG PREVIOUS TRACING : 10/26/2017 05.41 Since the previous tracing, no significant change noted DOCTOR: Yashira Russell Interpretating Date/Time 01/01/2018 20:22:35
== END 2018-01-01 14:00 | disposition home or self-care (01) ==
LOC: HDOC 05:33 → HDIC 05:33 → HDOC 14:00
PROVIDERS: ATTEND Internal Medicine Cardiovascular Disease
DX: I25.119 Atherosclerotic heart disease of native coronary artery with unspecified angina pectoris (principal); I11.9 Hypertensive heart disease without heart failure; I35.1 Nonrheumatic aortic (valve) insufficiency; I34.0 Nonrheumatic mitral (valve) insufficiency; I07.1 Rheumatic tricuspid insufficiency; E66.9 Obesity, unspecified; E78.5 Hyperlipidemia, unspecified; G47.30 Sleep apnea, unspecified; G56.01 Carpal tunnel syndrome, right upper limb; M19.90 Unspecified osteoarthritis, unspecified site; R73.03 Prediabetes; R42 Dizziness and giddiness; L40.9 Psoriasis, unspecified; R07.89 Other chest pain; Z95.5 Presence of coronary angioplasty implant and graft; Z68.34 Body mass index [BMI] 34.0-34.9, adult; Z01.818 Encounter for other preprocedural examination
CPT/HCPCS: 80048; 85025; 85610; 85730; 93005; 93458; 99152; 99153; C1760; C1769; C1893; G0269; J1644; J2250; J3010; Q9967